=== PATIENT | female | born 1980 | race African-American/Black ===

== ENCOUNTER 2021-05-08 10:01 | Emergency (ER) | payer SELFPAY ==
[2021-05-08] MEDS ORDERED: CLINDAMYCIN IV 150 MG/ML (4 mL) VIAL ONE (10:50)
--- NOTE | 2021-05-08 10:52 | ER ---
Nurse's Notes [facility] Name: Viri Carbone Age: 40 yrs Sex: Female : 1980 Arrival Date: 05/08/2021 Time: 10:02 Bed 11 Private MD: Diagnosis: Periapical abscess without sinus Presentation: 05/08 10:23 Chief complaint: Patient states: L upper jaw tooth pain since Saturday. + facial ll1 swelling, no known fever. Coronavirus screen: Vaccine status: Patient reports receiving the 1st dose of the Covid vaccine. Client denies travel out of the [place] in the last 14 days. At this time, the client does not indicate any symptoms associated with coronavirus-19. Ebola Screen: Patient denies travel to an Ebola-affected area in the 21 days before illness onset. Initial Sepsis Screen: Does the patient meet any 2 criteria? No. Patient's initial sepsis screen is negative. Does the patient have a suspected source of infection? Yes: Other: tooth infection. Risk Assessment: Do you want to hurt yourself or someone else? Patient reports no desire to harm self or others. Onset of symptoms was May 06, 2021. 10:23 Method Of Arrival: Ambulatory ll1 10:23 Acuity: [place] 3 ll1 Historical: - Allergies: 10:24 No Known Allergies; ll1 - PMHx: 10:24 Hypertensive disorder; ll1 - PSHx: 10:24 R leg SX; ll1 - Immunization history:: Client reports receiving the 1st dose of the Covid vaccine. - Social history:: Smoking status: Patient reports the use of cigarette tobacco products, smokes one-half pack cigarettes per day. Vital Signs: 10:23 BP 172 / 96; Pulse 82; Resp 16; Temp 97.5; Pulse Ox 99% ; Height 4 ft. 11 in. (149.86 ll1 cm); Pain 0/10; ED Course: 10:02 Patient arrived in ED. am2 10:24 Triage completed. ll1 10:24 Arm band placed on Patient placed in an exam room, on a stretcher. ll1 10:25 Mark Alfaro PA is PHCP. jr8 10:25 Chencho Bryant MD is Attending Physician. jr8 10:37 Brayden, Radha, RN is Primary Nurse. jh5 Administered Medications: :52 Drug: Clindamycin 600 mg {Note: 2ml to left gluteus and 2ml to right gluteus.} Route: [facility] IM; Site: left gluteus; Outcome: Discharge ordered by MD. murillo 11:00 Patient left the ED. jh5 Signatures: Mark Alfaro PA PA jr8 Anjelica Hernandez Lynsay, RN RN 1 Radha Owen RN RN jh5
--- NOTE | 2021-05-08 10:53 | EDPHYS ---
Physician Documentation [facility] Name: Viri Carbone Age: 40 yrs Sex: Female : 1980 Arrival Date: 05/08/2021 Time: 10:02 Bed 11 Private MD: ED Physician Chencho Bryant HPI: 05/08 10:42 This 40 yrs old Black Female presents to ER via Ambulatory with complaints of Toothache.jr8 10:42 The patient presents with pain, swelling. The problem is located in the face. jr8 10:49 This is a 40-year-old female that presented to the emergency room with facial swelling jr8 and upper maxillary pain secondary to a possible dental abscess. Patient said that it started a couple days ago but has worsened over time. Has been taking ibuprofen [id number] for the pain. Has not been able to get into a dentist as of yet.. Historical: - Allergies: 10:24 No Known Allergies; ll1 - PMHx: 10:24 Hypertensive disorder; ll1 - PSHx: 10:24 R leg SX; ll1 - Immunization history:: Client reports receiving the 1st dose of the Covid vaccine. - Social history:: Smoking status: Patient reports the use of cigarette tobacco products, smokes one-half pack cigarettes per day. ROS: 10:49 Constitutional: Negative for fever, chills, and weight loss, Eyes: Negative for injury, jr8 pain, redness, and discharge, Neck: Negative for injury, pain, and swelling, Cardiovascular: Negative for chest pain, palpitations, and edema, Respiratory: Negative for shortness of breath, cough, wheezing, and pleuritic chest pain, Abdomen/GI: Negative for abdominal pain, nausea, vomiting, diarrhea, and constipation, Back: Negative for injury and pain, MS/Extremity: Negative for injury and deformity, Skin: Negative for injury, rash, and discoloration, Neuro: Negative for headache, weakness, numbness, tingling, and seizure. 10:49 ENT: Positive for dental pain. Exam: 10:49 Head/face: Noted is swelling, that is mild, of the left cheek, tenderness, that is jr8 mild, of the left cheek. 10:49 ENT: Dental exam: abscess, is not appreciated, dental caries, that is moderate, diffusely, fractured teeth are noted, diffusely, gum swelling, that is mild, specifically in the upper left second bicuspid (#13) and upper left first molar (#14), pain, that is moderate, specifically in the upper left first molar (#14). 10:49 Eyes: Pupils equal round and reactive to light, extra-ocular motions intact. Lids and jr8 lashes normal. Conjunctiva and sclera are non-icteric and not injected. Cornea within normal limits. Periorbital areas with no swelling, redness, or edema. Neck: Trachea midline, no thyromegaly or masses palpated, and no cervical lymphadenopathy. Supple, full range of motion without nuchal rigidity, or vertebral point tenderness. No Meningismus. Cardiovascular: Regular rate and rhythm with a normal S1 and S2. No gallops, murmurs, or rubs. Normal PMI, no JVD. No pulse deficits. Respiratory: Lungs have equal breath sounds bilaterally, clear to auscultation and percussion. No rales, rhonchi or wheezes noted. No increased work of breathing, no retractions or nasal flaring. Abdomen/GI: Soft, non-tender, with normal bowel sounds. No distension or tympany. No guarding or rebound. No evidence of tenderness throughout. Skin: Warm, dry with normal turgor. Normal color with no rashes, no lesions, and no evidence of cellulitis. MS/ Extremity: Pulses equal, no cyanosis. Neurovascular intact. Full, normal range of motion. Neuro: Awake and alert, GCS 15, oriented to person, place, time, and situation. Cranial nerves II-XII grossly intact. Motor strength 5/5 in all extremities. Sensory grossly intact. Vital Signs: 10:23 BP 172 / 96; Pulse 82; Resp 16; Temp 97.5; Pulse Ox 99% ; Height 4 ft. 11 in. (149.86 ll1 cm); Pain 0/10; MDM: 10:25 Patient medically screened. jr8 10:49 Data reviewed: vital signs, nurses notes, and as a result, I will discharge patient. jr8 Data interpreted: Pulse oximetry: on room air is 99 %. Interpretation: normal. Counseling: I had a detailed discussion with the patient and/or guardian regarding: the historical points, exam findings, and any diagnostic results supporting the discharge/admit diagnosis, the need for outpatient follow up, a dentist, to return to the emergency department if symptoms worsen or persist or if there are any questions or concerns that arise at home. ED course: Close return precautions given to patient as she does have a mild facial cellulitis without extension into the orbital region. Started patient on antibiotics in the emergency room we will continue her on antibiotics outpatient only. Needs to see a dentist as soon as possible. Instructions to come back immediately if her swelling were to get worse. Patient good with this at this time.. Administered Medications: 10:52 Drug: Clindamycin 600 mg {Note: 2ml to left gluteus and 2ml to right gluteus.} Route: jh5 IM; Site: left gluteus; Disposition: 14:15 Co-signature as Attending Physician, Chencho Bryant MD. rn Disposition Summary: 05/08/21 10:52 Discharge Ordered Location: Home jr8 Problem: new jr8 Symptoms: have improved jr8 Condition: Stable jr8 Diagnosis - Periapical abscess without sinus jr8 Followup: jr8 - With: Private Physician - When: 2 - 3 days - Reason: Recheck today's complaints, Continuance of care, Re-evaluation by your physician Discharge Instructions: - Discharge Summary Sheet jr8 - Dental Abscess jr8 - Dental Pain jr8 Forms: - Work release form jr8 - Medication Reconciliation Form jr8 - Thank You Letter jr8 - Antibiotic Education jr8 - Prescription Opioid Use jr8 Prescriptions: - Clindamycin HCl 300 mg Oral Capsule - take 1 capsule by ORAL route every 6 hours for 10 days; 40 capsule; Refills: 0, jr8 Product Selection Permitted - Ibuprofen 800 mg Oral Tablet - take 1 tablet by ORAL route every 12 hours As needed take with food; 20 tablet; jr8 Refills: 0, Product Selection Permitted Signatures: Chencho Bryant MD MD rn Roszak, Josh, PA PA jr8 Pro Zhou RN RN ll1 Radha Owen RN RN jh5
[2021-05-08 11:23] VITALS: BP 172/96; TEMP 97.5; O2SAT 99
== END 2021-05-08 11:00 | disposition home or self-care (01) ==
LOC: ER 10:01
DX: K04.7 Periapical abscess without sinus (principal); I10 Essential (primary) hypertension; F17.210 Nicotine dependence, cigarettes, uncomplicated
CPT/HCPCS: 96372; 99282; S0077

== ENCOUNTER 2023-02-01 10:19 | Emergency (ER) | payer SELFPAY ==
--- OUTSIDE RECORDS SUMMARY | 2023-02-01 10:22 | XMS REPORT | Continuity of Care Document ---
:1980 Author Organization [facility] t Address [address] [place] [address] Care Team Providers Name Role Phone KIAN COOPER Attending Clinician Unavailable ALISSA WATKINS Attending Clinician Unavailable KATHIE REDDY Attending Clinician Unavailable IDA GARBER Attending Clinician Unavailable Payers Payer Name Policy Type Policy Number Effective Date Expiration Date S felicita [facility] [id number] 2020 HEALTH 00:00:00 [facility] [id number] 2020 2021 HEALTH PROGRAM 00:00:00 00:00:00 Problems Condition Condition Condition Status Onset Resolution Last Treating Co mments Source Name Details Category Date Date Treatment Clinician Date Major Major Disease Active Overview: Brodie depressive depressive 04-20 [facility] disorder, disorder, 00:00: g of this recurrent recurrent 00 note severe severe might be without without different psychotic psychotic from the features features original. [place] 1 Priority 1 Problem Problem Disease Active Overview: Renetta is related to related to 04-20 [facility] primary primary 00:00: g of this support support 00 note group group might be different from the original. [place] 4 Priority 3 Economic Economic Disease Active Overview: [facility] problem problem 04-20 [facility] 00:[facility]: g of this 00 note might be different from the original. [place] 4 Priority 1 Housing Housing Disease Active Overview: Renetta is problems problems 04-20 [facility] 00:[facility]: g of this 00 note might be different from the original. [place] 4 Priority 2 Occupation Occupation Disease Active Overview : Brodie al problem al problem 04-20 [facility] 00:00: g of this 00 note might be different from the original. [place] 4 Priority 4 [place] V [place] V Disease Active Overview: [place] diagnosis diagnosis 04-20 [facility] 00:00: g of this note might be different from the original. GAF Score:47 Pain, Pain, Disease Active 2013-03 [facility] dental dental 05-12 Health 00:00: 00 Left Left Disease Active 2013-03 [place] facial facial 05-12 Health swelling swelling 00:00: 00 MDD (major MDD (major Disease Active H [facility]is depressive depressive 04-07 [facility] disorder), disorder), 00:00: recurrent recurrent 00 episode, episode, moderate moderate Fracture, Fracture, Disease Active [facility] ris femoral femoral 08-13 Health 00:00: 00 Pain Pain Disease Active [facility] management management 08-13 [facility] al[facility] contract contract 00:00: agreement agreement 00 Suicidal Suicidal Disease Active [facility] s ideation ideation Health Allergies, Adverse Reactions, Alerts This patient has no known allergies or adverse reactions. Family History Family Member Diagnosis Comments Start Date Stop Date Source Natural mother Arthritis [facility] Natural mother Asthma [facility] Natural mother Cancer [facility] Natural mother Seizures [facility] Natural mother Stroke [facility] Natural sister Hypertension [facility] Social History Social Habit Start Date Stop Date Quantity Comments Source History of tobacco Cigarette Smoker [facility] use Sexual orientation [facility] History of Social 2023-01-25 2023-01-25 [facility] function 00:00:00 00:00:00 Alcohol intake 2020-10-24 2020-10-24 Current [facility] 00:00:00 00:00:00 non-drinker of alcohol (finding) Cigarettes smoked 2014-03-15 2014-03-15 [facility] current (pack per 00:00:00 00:00:00 day) - Reported Cigarette pack-years 2014-03-15 2014-03-15 [facility] 00:00:00 00:00:00 Tobacco use and 2014-03-15 2014-03-15 User of smokeless [facility] exposure 00:00:00 00:00:00 tobacco Alcohol Comment 2012-06-11 2012-06-11 quit 03/25/2012 [facility] 00:00:00 00:00:00 Sex Ass[birth year] At [birth year] [place] [facility] 00:00:00 00:00:00 Smoking Status Start Date Stop Date Source Smokes tobacco daily 2014-03-15 00:00:00 [facility] Medications Ordered Filled Start Stop Current Ordering Indication Dosage Frequency Signature Comments Components Source Medication Medication Date Date Medication? Clinician (SIG) Name Name acetaminoph Yes 650mg Take 650 H arris en 4-02 mg by [facility] (TYLENOL) 18:20: mouth 325 mg 06 every 6 tablet hours as needed. sertraline Yes Take 1 Harri s (ZOLOFT) 50 2-24 tablet(s) Hea lth mg tablet 00:00: by mouth 00 every morning after food traMADol 2014-03 Yes Chronic 50mg Take 1 Renetta is (ULTRAM) 50 0-26 right hip tablet by [facility] mg tablet 00:00: pain mouth 00 every 6 hours as needed for Pain. ibuprofen Yes Odontalgia 800mg Take 1 [facility] (MOTRIN) 6-30 tablet by Health 800 mg 00:00: mouth tablet 00 every 8 hours as needed for Pain. FLUoxetine Yes Depression 40mg QD Take 2 [place] (PROZAC) 20 4-24 capsules Heal th mg capsule 00:00: by mouth 00 daily. ibuprofen Yes Chronic 800mg Take 1 [facility] (MOTRIN) 4-08 right hip tablet by H ealth 800 mg 00:00: pain mouth tablet 00 every 8 hours as needed for Pain or Fever. Immunizations Ordered Immunization Filled Immunization Date Status Commen ts Source Name Name Influenza Vaccine Unknown Completed [facility] Procedures This patient has no known procedures. Plan of Care Planned Activity Planned Date Details Comments Source Future Scheduled Test 2020 Breast Cancer Scrn [facility] 00:00:00 (Yearly) [code = Breast Cancer Scrn (Yearly)] Future Scheduled Test 2018-01-26 Screening for malignant [facility] 00:00:00 neoplasm of cervix (procedure) [code = 063291413] Future Scheduled Test 2018-01-26 Screening for malignant [facility] 00:00:00 neoplasm of cervix (procedure) [code = 406504278] Future Scheduled Test 2014-12-09 HEMS SMOKING CESSATION [facility] 00:00:00 AGE 18 AND UP [code = HEMS SMOKING CESSATION AGE 18 AND UP] Future Scheduled Test 1986 Imm Pneumococcal 0-64 [facility] 00:00:00 (1 - PCV) [code = Imm Pneumococcal 0-64 (1 - PCV)] Future Scheduled Test 1981-03-09 COVID-19 Vaccine (#1) [facility] 00:00:00 [code = COVID-19 Vaccine (#1)] Encounters Start End Encounter Admission Attending Care Care Encounter Source Date/Time Date/Time Type Type Clinicians Facility Department ID 2020-10-06 Outpatient KENNETH, [facility] [id number] [facility] 13:01:25 KIAN 2020-11-21 2020-11-21 Outpatient [facility] [id number] [place] 00:00:00 00:00:00 AFROZ Health 2020-10-06 2020-10-14 Inpatient [facility] [id number] [place] 12:59:00 23:00:00 Health 2020-10-04 2020-10-06 Emergency [facility] [id number] [place] [facility]-10-06 2020-10-06 Outpatient JCARLOS [facility] [id number] [place] 00:00:00 00:00:00 [facility] Results This patient has no known results.
[2023-02-01] MEDS ORDERED: KETOROLAC 30 MG/ML INJ ONE (11:11)
--- NOTE | 2023-02-01 11:18 | RAD REPORT ---
EXAM DESCRIPTION: RAD - Shoulder Right 2 View - 02/01/2023 11:08 am CLINICAL HISTORY: PAIN COMPARISON: No comparisons FINDINGS: Mild AC joint degenerative changes are present. No acute fracture or dislocation is seen.
--- NOTE | 2023-02-01 11:41 | EDPHYS ---
Physician Documentation [facility] Name: Viri Carbone Age: 42 yrs Sex: Female : 1980 Arrival Date: 02/01/2023 Time: 10:19 Bed DX4 Private MD: ED Physician Ever Garcia HPI: 02/01 10:40 This 42 yrs old Black Female presents to ER via Ambulatory with complaints of Fall sb4 Injury, Arm Injury - right. 10:40 The patient or guardian complains of decreased range of motion, an injury, pain, that sb4 is acute. right shoulder. Context: The problem was sustained at home, resulted from a fall, down stairs, The patient experiences decreased range of motion, when attempts to raise arm, The patient reports no obvious deformity. Onset: The symptoms/episode began/occurred last night. Modifying factors: the symptoms are alleviated by remaining still, The symptoms are aggravated by lifting weight, movement, rotation of arm. Associated signs and symptoms: Pertinent negatives: Numbness in right arm tingling. Treatment prior to arrival includes: no previous treatment. The patient has not experienced similar symptoms in the past. Historical: - Allergies: 10:36 No Known Allergies; iw - Home Meds: 10:36 None [Active]; iw - PMHx: 10:36 Hypertensive disorder; iw - PSHx: 10:36 R LEG SX; iw - Immunization history:: Client reports having NOT received the Covid vaccine. - Social history:: Smoking status: Patient reports the use of cigarette tobacco products, smokes one-half pack cigarettes per day. ROS: 10:40 Constitutional: Negative for fever, chills, and weight loss, sb4 10:40 MS/extremity: Positive for injury or acute deformity, decreased range of motion, pain, tenderness, of the right shoulder, 10:40 All other systems are negative, Exam: 10:40 Constitutional: This is a well developed, well nourished patient who is awake, alert, sb4 and in no acute distress. Head/Face: Normocephalic, atraumatic. Eyes: Extra-ocular motions intact. Periorbital areas with no swelling, redness, or edema. ENT: Mucous membranes moist. Skin: Warm, dry with normal turgor. Normal color with no rashes, no lesions, and no evidence of cellulitis. Neuro: Awake and alert, GCS 15, oriented to person, place, time, and situation. Motor strength 5/5 in all extremities. Sensory grossly intact. 10:40 Musculoskeletal/extremity: ROM: limited active range of motion due to pain, limited passive range of motion due to pain, in the right arm, Circulation is intact in all extremities. Pulses: are normal with no appreciated deficits, Perfusion: the patient is normally perfused throughout, Perfusion: the extremity is normally perfused throughout, Sensation intact. Compartment Syndrome exam of affected extremity: is normal. no numbness, no tingling, no sensation deficit, no palor, no weak pulses, Joints: the right shoulder displays painful range of motion, tenderness, Vital Signs: 10:36 BP 160 / 101; Pulse 103; Resp 16; Temp 98.6; Pulse Ox 99% on R/A; Weight 65.77 kg; iw Height 4 ft. 11 in. ; Pain 5/10; 11:49 Pain 5/10; jl7 10:36 Body Mass Index 29.29 (65.77 kg, 149.86 cm) iw 10:36 Pain Scale: Adult iw 11:49 Pain Scale: Adult jl7 MDM: 10:33 Patient medically screened. sb4 10:40 Differential diagnosis: Anterior dislocation with fracture, Anterior dislocation sb4 without fracture, Posterior dislocation with fracture, Posterior dislocation without fracture, humeral head fracture, glenoid fracture, tendonitis, clavicle fracturem, shoulder strain, shoulder sprain. 13:36 Data reviewed: vital signs, nurses notes, radiologic studies, and as a result, I will sb4 discharge patient. Independent interpretation of the following test(s) in the Emergency Department X-Ray: My interpretation is my interpretation of the shoulder xray images are no acute fracture or dislocation. Care significantly affected by the following chronic conditions: Diabetes. Counseling: I had a detailed discussion with the patient and/or guardian regarding the historical points, exam findings, and any diagnostic results supporting the discharge/admit diagnosis, radiology results, the need for outpatient follow up, a orthopedic surgeon, to return to the emergency department if symptoms worsen or persist or if there are any questions or concerns that arise at home. 02/01 10:40 Order name: Shoulder Right (2 View) XRAY; Complete Time: 11:19 sb4 02/01 11:27 Order name: Shoulder Immobilizer; Complete Time: 11:49 sb4 Administered Medications: 10:58 Drug: Ketorolac IM 30 mg IM once Route: IM; Site: right deltoid; jl7 11:49 Follow up: Pain 08/01 Adult; Response: No adverse reaction; Pain is decreased jl7 11:45 Drug: Hydrocodone-Acetaminophen PO (7.5 mg-325 mg) 1 tabs PO once Route: PO; jl7 11:49 Follow up: Response: Medication administered at discharge. jl7 Disposition Summary: 02/01/23 11:40 Discharge Ordered Notes: Location: Home sb4 Problem: new sb4 Symptoms: have improved sb4 Condition: Stable sb4 Diagnosis - Other sprain of right shoulder joint sb4 Followup: sb4 - With: Magen Serna MD - When: - Reason: Further diagnostic work-up, Recheck today's complaints, Re-evaluation by your physician Discharge Instructions: - Discharge Summary Sheet sb4 - How to Use a Shoulder Immobilizer sb4 - Shoulder Sprain sb4 Forms: - Work release form sb4 - Medication Reconciliation Form sb4 - Thank You Letter sb4 - Antibiotic Education sb4 - Prescription Opioid Use sb4 - Patient Portal Instructions sb4 - Leadership Thank You Letter sb4 Prescriptions: - Tramadol 50 mg Oral Tablet - take 1 tablet ORAL route every 8 hours as needed; 12 tablet; Refills: 0, sb4 Product Selection Permitted Signatures: Dispatcher [employer] Valerie Marcum, RN Home Davis RN RN jl7 Brown, Sophia, PA-C PA-C sb4
--- NOTE | 2023-02-01 11:41 | ER ---
Nurse's Notes [facility] Name: Viri Carbone Age: 42 yrs Sex: Female : 1980 Arrival Date: 02/01/2023 Time: 10:19 Bed DX4 Private MD: Diagnosis: Other sprain of right shoulder joint Presentation: 02/01 10:34 Chief complaint: Patient states: fell down about 4-5 stairs yesterday , tripped and iw fell, landed on her back and on her right side, now her right shoulder and shoulder blade are hurting. 10:34 Acuity: [place] 4 iw 10:36 Coronavirus screen: At this time, the client does not indicate any symptoms associated iw with coronavirus-19. Ebola Screen: Patient negative for fever greater than or equal to 101.5 degrees Fahrenheit, and additional compatible Ebola Virus Disease symptoms Patient denies exposure to infectious person. Patient denies travel to an Ebola-affected area in the 21 days before illness onset. No symptoms or risks identified at this time. Initial Sepsis Screen: Does the patient meet any 2 criteria? No. Patient's initial sepsis screen is negative. Does the patient have a suspected source of infection? No. Patient's initial sepsis screen is negative. Risk Assessment: Do you want to hurt yourself or someone else? Patient reports no desire to harm self or others. Onset of symptoms was January 31, 2023. 10:36 Method Of Arrival: Ambulatory iw Historical: - Allergies: 10:36 No Known Allergies; iw - Home Meds: 10:36 None [Active]; iw - PMHx: 10:36 Hypertensive disorder; iw - PSHx: 10:36 R LEG SX; iw - Immunization history:: Client reports having NOT received the Covid vaccine. - Social history:: Smoking status: Patient reports the use of cigarette tobacco products, smokes one-half pack cigarettes per day. Screenin:38 [facility] ED Fall Risk Assessment (Adult) History of falling in the last 3 months, iw including since admission Yes- single mechanical fall (1 pt) Score/Fall Risk Level. Abuse screen: Denies threats or abuse. Denies injuries from another. Nutritional screening: No deficits noted. Tuberculosis screening: No symptoms or risk factors identified. Assessment: 10:37 General: Appears in no apparent distress. Behavior is calm, cooperative. Pain: iw Complains of pain in anterior aspect of right shoulder and posterior aspect of right shoulder Pain currently is 5 out of 10 on a pain scale. Neuro: Level of Consciousness is alert, obeys commands, Oriented to person, place, time, situation, Moves all extremities. Cardiovascular: Patient's skin is warm and dry. Respiratory: Respiratory effort is even, unlabored, Respiratory pattern is regular. GI: No signs and/or symptoms were reported involving the gastrointestinal system. Derm: Skin is healthy with good turgor. Musculoskeletal: Range of motion: limited in right shoulder. Vital Signs: 10:36 BP 160 / 101; Pulse 103; Resp 16; Temp 98.6; Pulse Ox 99% on R/A; Weight 65.77 kg; iw Height 4 ft. 11 in. ; Pain 5/10; 11:49 Pain 5/10; jl7 10:36 Body Mass Index 29.29 (65.77 kg, 149.86 cm) iw 10:36 Pain Scale: Adult iw 11:49 Pain Scale: Adult jl7 ED Course: 10:23 Patient arrived in ED. im 10:24 Roya Ovalle PA-C is PHCP. sb4 10:24 Ever Garcia MD is Attending Physician. sb4 10:36 Triage completed. iw 10:37 Arm band placed on. iw 10:38 Patient has correct armband on for positive identification. Provided Education on: . iw 10:52 Home Perez, REMBERTO is Primary Nurse. jl7 11:09 Shoulder Right (2 View) XRAY In Process Unspecified. EDMS 11:40 Magen Serna MD is Referral Physician. sb4 11:50 No provider procedures requiring assistance completed. Patient did not have IV access jl7 during this emergency room visit. Administered Medications: 10:58 Drug: Ketorolac IM 30 mg IM once Route: IM; Site: right deltoid; jl7 11:49 Follow up: Pain 5/10 Adult; Response: No adverse reaction; Pain is decreased jl7 11:45 Drug: Hydrocodone-Acetaminophen PO (7.5 mg-325 mg) 1 tabs PO once Route: PO; jl7 11:49 Follow up: Response: Medication administered at discharge. jl7 Medication: 10:38 VIS not applicable for this client. iw Outcome: 11:40 Discharge ordered by . sb4 11:50 Discharged to home ambulatory, jl7 11:50 Condition: stable 11:50 Discharge instructions given to patient, Instructed on discharge instructions, follow up and referral plans. 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 jl7 Signatures: Dispatcher [employer] EDValerie Jefferson RN RN iw Leal, Jahala, RN RN jl7 Brown, Sophia, PA-C PA-C Arabella Oliveros
[2023-02-01 11:54] VITALS: BP 160/101; TEMP 98.6; O2SAT 99
== END 2023-02-01 11:50 | disposition home or self-care (01) ==
LOC: ER 10:19
DX: S43.491A Other sprain of right shoulder joint, initial encounter (principal)
CPT/HCPCS: 96372; 99284